=== PATIENT | male | born 1955 | race Two or more races ===

== ENCOUNTER 2022-03-03 16:16 | Emergency (ER) | payer OTHER ==
[~2022-03-03] VITALS: Ht 172.7 cm; Wt 100.7 kg
[2022-03-03] MEDS ORDERED: JENTADUETO 2.51 EAC2 PO (16:46)
[2022-03-03] MEDS ORDERED: SIMVASTATIN20 MG PO (16:46)
[2022-03-03] MEDS ORDERED: SYNTHROID50 MCG PO (16:47)
[2022-03-03] MEDS ORDERED: GABAPENTIN100 M2 PO (16:47)
[2022-03-03] MEDS ORDERED: JARDIANCE25 MG PO (16:47)
[2022-03-03] MEDS ORDERED: LOSARTAN POTASS50 MG PO (16:47)
[2022-03-03] MEDS ORDERED: GLIPIZIDE ER2.5 MG PO (16:47)
== END 2022-03-04 21:34 | disposition home or self-care (01) ==
LOC: ER 16:16
DX: E86.0 Dehydration (principal); R07.9 Chest pain, unspecified; E83.52 Hypercalcemia

== ENCOUNTER 2022-04-28 15:42 | Inpatient (IN) | payer OTHER ==
[~2022-04-28] VITALS: Ht 172.7 cm; Wt 90.7 kg
[~2022-04-28 15:42] MED LIST: GABAPENTIN100 M2 PO; GLIPIZIDE ER2.5 MG PO; JARDIANCE25 MG PO; JENTADUETO 2.51 EAC2 PO; LOSARTAN POTASS50 MG PO; SIMVASTATIN20 MG PO; SYNTHROID50 MCG PO
[2022-04-28] MEDS ORDERED: LANTUS SOL100 UNIT/1 (16:01)
[2022-04-28] MEDS ORDERED: HUMALOG KW200 UNIT/1 (16:01)
[2022-04-28] MEDS ORDERED: MOTRIN IB200 MG PO (16:02)
[2022-04-28] MEDS ORDERED: HYDRALAZINE HCL25 MG (16:02)
[2022-04-28] MEDS ORDERED: NEURONTIN300 MG (16:03)
[2022-04-28] MEDS ORDERED: TIZANIDINE HCL2 M1 PO (16:03)
[2022-04-28] MEDS ORDERED: ADULT LOW DOSE81 M1 (16:03)
[2022-04-28] MEDS ORDERED: ULTRAM50 MG (16:04)
[2022-04-28] MEDS ORDERED: FAMCICLOVIR250 MG (16:04)
[2022-04-28] MEDS ORDERED: OSTERA TABLET1 EACH (16:04)
== END 2022-05-01 15:23 | disposition home or self-care (01) | DRG 812 ==
LOC: ER 15:42 → SEC-K 22:11 → SURG 22:11
PROVIDERS: ADMIT Internal Medicine; ATTEND Internal Medicine
PROC: 30233N1 Transfusion of Nonautologous Red Blood Cells into Peripheral Vein, Percutaneous Approach (ICD-10-PCS; principal; 2022-04-29)
DX: D64.9 Anemia, unspecified (principal); C90.00 Multiple myeloma not having achieved remission; E86.0 Dehydration; E83.51 Hypocalcemia; E83.42 Hypomagnesemia; R07.81 Pleurodynia; E11.9 Type 2 diabetes mellitus without complications; Z79.4 Long term (current) use of insulin; I10 Essential (primary) hypertension; Z20.822 Contact with and (suspected) exposure to COVID-19

== ENCOUNTER 2022-11-27 07:11 | Outpatient (CLI) | payer OTHER ==
[~2022-11-27 07:11] MED LIST changes: +ADULT LOW DOSE81 M1; +FAMCICLOVIR250 MG; +HUMALOG KW200 UNIT/1; +HYDRALAZINE HCL25 MG; +LANTUS SOL100 UNIT/1; +MOTRIN IB200 MG PO; +NEURONTIN300 MG; +OSTERA TABLET1 EACH; +TIZANIDINE HCL2 M1 PO; +ULTRAM50 MG
== END 2022-11-27 07:15 | disposition home or self-care (01) ==
LOC: NUCLEAR 07:11
PROVIDERS: ATTEND Internal Medicine
DX: I44.7 Left bundle-branch block, unspecified (principal); I10 Essential (primary) hypertension; E11.9 Type 2 diabetes mellitus without complications; E78.2 Mixed hyperlipidemia; E07.9 Disorder of thyroid, unspecified; C80.1 Malignant (primary) neoplasm, unspecified; C90.00 Multiple myeloma not having achieved remission; Z87.891 Personal history of nicotine dependence
CPT/HCPCS: 78452; 93017; A9500; J0153